=== PATIENT | male | born 1970 | race Two or more races ===

== ENCOUNTER 2019-07-15 12:09 | Inpatient (IN) | payer OTHER ==
[~2019-07-15] VITALS: Ht 177.8 cm; Wt 82.6 kg
[2019-07-15] MEDS ORDERED: AMLODIPINE BESY10 MG (12:33)
== END 2019-07-26 14:06 | disposition home or self-care (01) | DRG 603 ==
LOC: ER 12:09 → MEDJ 18:39
PROVIDERS: ADMIT Internal Medicine
PROC: BQ2 Imaging, Non-Axial Lower Bones, Computerized Tomography (CT Scan) (ICD-10-PCS; principal; 2019-07-15)
DX: L03.115 Cellulitis of right lower limb (principal); B95.61 Methicillin susceptible Staphylococcus aureus infection as the cause of diseases classified elsewhere; I10 Essential (primary) hypertension; E03.8 Other specified hypothyroidism; E78.49 Other hyperlipidemia; L97.512 Non-pressure chronic ulcer of other part of right foot with fat layer exposed